=== PATIENT | female | born 2000 | race Caucasian/White ===

== ENCOUNTER 2022-07-16 07:24 | Day surgery (SDC) | payer MEDICAID ==
[~2022-07-16 07:24] MED LIST: Midazolam 1 MG/ML 2 ML SDV ONE; Propofol 200 MG/20 ML SDV ONE; fentaNYL 100 MCG/2 ML SDV ONE
[2022-07-16] MEDS: Lactated Ringers 1,000 ML IV SCH ×2 (08:08→12:28)
[2022-07-16] MEDS ORDERED: Lactated Ringers 1,000 ML IV SCH (12:15)
[2022-07-16] MEDS ORDERED: Propofol 200 MG/20 ML SDV ONE ×3 (12:21→13:33)
[2022-07-16] MEDS ORDERED: fentaNYL 100 MCG/2 ML SDV ONE (12:21)
[2022-07-16] MEDS ORDERED: Midazolam 1 MG/ML 2 ML SDV ONE (12:22)
== END 2022-07-16 14:55 | disposition home or self-care (01) ==
LOC: JP.SDS 07:24
PROVIDERS: ATTEND Student in an Organized Health Care Education/Training Program
DX: K50.00 Crohn's disease of small intestine without complications (principal); K63.5 Polyp of colon
CPT/HCPCS: 43239; 45380; 81025; J2250; J2704; J3010; J7120; 88305